=== PATIENT | female | born 1990 | race Caucasian/White ===

== ENCOUNTER 2020-12-14 13:30 | Inpatient (IN) | payer OTHER ==
[2020-12-14 14:17] VITALS: BMI 28.4
[2020-12-14] MEDS ORDERED: hydrALAZINE 20 MG/ML VIAL SLOW IVP PRN ×3 (14:27→23:47)
--- NOTE | 2020-12-14 14:32 | PDOC.LDHP ---
Labor and Delivery H&P Chief complaint: contractions HPI: 30 yo (h/o demise @ 16wks EGA) presents in labor. Contractions started last night around 11pm. She began leaking amniotic fluid with movement at 10:00am this morning. She states the contractions are uncomfortable, but she is not currently in any pain. She had Current gestational age (weeks): 39 (39.3) Due date: 12/18/20 Dating criteria: last menstrual period, first trimester ultrasound Grav: 2 OB History Details: H/o IUFD @ 16wks with prior . [facility] genetic testing negative. Female gender. APLS workup negative. Current complications: none Abnormal US findings: No Past Medical History: None Current medications: pre-minerva vitamins Previous surgical history: none Allergies/Adverse Reactions: Allergies Allergy/AdvReac Type Severity Reaction Status Date / Time No Known Allergies Allergy Unverified 12/14/20 14:07 Social history: none - Physical Exam Vital signs reviewed and normal: yes General: NAD, resting, breathing through contractions Heart: RRR Lungs: nonlabored breathing Abdomen: gravid Extremeties: no edema FHT: category 1 [place] contractions every: irreg - Vaginal Exam cm dilated: 4 (grossly ruptured membranes) Effacement: 90% Station: -1 - OB Labs Blood type: A RH: positive Antibody Screen: negative HIV: negative RPR: negative HEPSAg: negative 1 hour GCT: negative GBS: negative Rubella: immune - Assessment L&D Assessment: term rupture in membranes - Plan Plan: admit to L&D -: GBS negative. Admit to L&D for labor. Augment as needed.
[2020-12-14] MEDS ORDERED: Promethazine HCl 25 MG/ML VIAL IM PRN ×3 (14:38→23:47)
[2020-12-14] MEDS ORDERED: Methylergonovine 0.2 MG/ML VIAL IM PRN (14:38)
[2020-12-14] MEDS ORDERED: Lidocaine 1% (PF) 30 ML VIAL SC PRN (14:38)
[2020-12-14] MEDS ORDERED: Ibuprofen 800 MG TAB PO PRN (14:38)
[2020-12-14] MEDS ORDERED: Ondansetron PF 4 MG/2 ML Vial IVP PRN ×3 (14:38→23:47)
[2020-12-14] MEDS ORDERED: Carboprost 250 MCG/ML AMP IM PRN (14:38)
[2020-12-14] MEDS ORDERED: Misoprostol 200 MCG TAB PR PRN (14:38)
[2020-12-14] MEDS ORDERED: Diphenoxylate HCl/Atropine Tablet PO PRN (14:38)
[2020-12-14] MEDS ORDERED: NS w/ Oxytocin 30 units 500 ML IVPB PRN (14:47)
[2020-12-14] MEDS ORDERED: NS w/ Oxytocin 30 units 500 ML IVPB SCH ×2 (15:00→23:45)
[2020-12-14 15:55] LABS: Hemoglobin 11.3 g/dL (12.0-16.0); Mean Corpuscular HGB CONC 32.7 g/dL (32.0-36.0); Mean Corpuscular Hemoglobin 25.5 pg (27.0-31.0); Platelet Count 280 thou/uL (130-400); Red Blood Cell (RBC) Count 4.43 mill/uL (4.20-5.40); White Blood Cell (WBC) Count 14.4 thou/uL (4.8-10.8)
[2020-12-14 16:34] LABS: Syphilis Antibody Nonreactive (Nonreactive); Syphilis Antibody Index 0.02 S/CO (<1.00 Non-Reactive)
[2020-12-14 16:35] LABS: HBSAg Index 0.18 S/CO (0-0.99); Hep B Surf Ag Non-Reactive S/CO (NonReactive)
[2020-12-14] MEDS ORDERED: Fentanyl 4 mcg/Bup 0.1% Cadd 100 ML ONE (16:53)
[2020-12-14] MEDS ORDERED: Lactated Ringer's 500 ML IV PRN (17:38)
[2020-12-14] MEDS ORDERED: diphenhydrAMINE 50 MG/ML VIAL IVP PRN (17:38)
[2020-12-14] MEDS ORDERED: Acetaminophen 325 MG TAB PO PRN (17:38)
[2020-12-14] MEDS ORDERED: Naloxone HCl 0.4 mg/ml Vial IVP PRN ×2 (17:38)
[2020-12-14] MEDS ORDERED: ePHEDrine 50 MG/ML VIAL SLOW IVP PRN (17:38)
[2020-12-14] MEDS ORDERED: Communication Order-Pharmacy FS SCH (17:45)
[2020-12-14] MEDS ORDERED: Fentanyl 4 mcg/Bupivacaine 0.1% Cassette 100 ML EPIDURAL SCH (17:45)
[2020-12-14] MEDS: Lactated Ringer's 1,000 ML IV SCH (18:15)
[2020-12-14] MEDS ORDERED: Lidocaine 1% (PF) 30 ML VIAL ONE (19:53)
--- NOTE | 2020-12-14 21:45 | PDOC.OPDEL ---
OB Operative/Delivery Note Delivery Dr/Surgeon: Darvin Pre-Delivery Diagnosis: ruptured membrane Procedure/Post Delivery Dx: spontaneous vaginal delivery Weeks gestation: 39 Anesthesia: epidural - Findings A Sex: female - 1 min: 8 - 5 min: 9 - Additional Findings/Plan Placenta delivered: spontaneous Repaired Obstetrical Laceration: 1st degree Estimated blood loss: 75cc Compilations/Other Findings: NC x1 reduced Post delivery plan: routine recovery
[2020-12-14] MEDS ORDERED: Preparation H Ointment 28 GM TUBE PR PRN (23:47)
[2020-12-14] MEDS ORDERED: Milk Of Magnesia 30 ML UDCUP PO PRN (23:47)
[2020-12-14] MEDS ORDERED: HYDROcodone/Acetaminophen 5/325 mg Tablet PO PRN ×2 (23:47)
[2020-12-14] MEDS ORDERED: Bisacodyl 10 MG SUPP PR PRN (23:47)
[2020-12-14] MEDS ORDERED: Benzocaine-Menthol 82.5 ML CAN TOP PRN (23:47)
[2020-12-14] MEDS ORDERED: Lanolin Ointment 7 GM TUBE TOP PRN (23:47)
[2020-12-14] MEDS ORDERED: diphenhydrAMINE 25 MG CAP PO PRN (23:47)
[2020-12-15] MEDS: Lactated Ringer's 1,000 ML IV SCH
[2020-12-15] MEDS: Ibuprofen 800 MG TAB PO SCH ×3 (05:28→22:43)
[2020-12-15] MEDS: Ferrous Sulfate 325 MG TAB PO SCH (06:54)
[2020-12-15 06:56] LABS: SARS-CoV-2 PCR by NAA Not Detected (NotDetected)
[2020-12-15] MEDS: Prenatal Vitamin 1 TAB PO SCH (08:09)
[2020-12-15] MEDS: Docusate Calcium (SURFAK) 240 MG CAP PO SCH ×2 (08:09→22:44)
[2020-12-15] MEDS ORDERED: Adacel (T-DAP) 0.5 ML SYRINGE IM ONE (09:00)
--- NOTE | 2020-12-15 19:15 | PDOC.PP ---
Post Progress Note Post Day #: 1 PO intake tolerated: yes Flatus: yes Ambulation: yes Vital Signs (12 hours) Temp Pulse Resp BP Pulse Ox 12/15/20 16:20 98.3 F 83 18 129/69 98 12/15/20 12:36 98.3 F 77 18 121/68 97 12/15/20 08:13 98 F 73 20 118/56 L 97 Weight Weight 198 lb - Physical Examination General: NAD Respiratory: non-labored breathing Skin: no rash Neurological: no gross focal deficits Psychiatric: normal affect Result Diagrams: 12/14/20 15:40 Additional Labs: Post Labs Hep Bs Antigen Non-Reactive S/CO (NonReactive) 12/14/20 15:40 Blood Type A POSITIVE 12/14/20 17:01 - Assessment/Plan PPD1 s/p TVSD VSSAF Doing well, lochia < menses s/p LC Rh pos RImm Cont PP care.
[2020-12-16] MEDS: Ibuprofen 800 MG TAB PO SCH (06:55)
--- NOTE | 2020-12-16 07:00 | PDOC.PP ---
Post Progress Note Post Day #: 2 PO intake tolerated: yes Flatus: yes Ambulation: yes Vital Signs (12 hours) Temp Pulse Resp BP Pulse Ox 12/15/20 19:45 96.4 F L 80 20 127/78 97 Weight Weight 198 lb - Physical Examination General: NAD Respiratory: non-labored breathing Abdominal: no distention, appropriately TTP Extremities: negative homans (B) Skin: no rash Neurological: no gross focal deficits Psychiatric: normal affect Result Diagrams: 12/14/20 15:40 Additional Labs: Post Labs Hep Bs Antigen Non-Reactive S/CO (NonReactive) 12/14/20 15:40 Blood Type A POSITIVE 12/14/20 17:01 - Assessment/Plan PPD2 s/p TSVD VSSAF No issues bleeding appropriately rh pos rimm DC home FU 6w
[2020-12-16] MEDS: Ferrous Sulfate 325 MG TAB PO SCH (07:14)
[2020-12-16] MEDS: Docusate Calcium (SURFAK) 240 MG CAP PO SCH (08:24)
[2020-12-16] MEDS: Prenatal Vitamin 1 TAB PO SCH (08:24)
[2020-12-16 11:56] VITALS: BP 131/83; TEMP 97.8
== END 2020-12-16 15:00 | disposition home or self-care (01) | DRG 807 ==
LOC: L&D/OP 13:30 → L&D 14:38 → 3SE 23:46
PROVIDERS: ADMIT Student in an Organized Health Care Education/Training Program; ATTEND Student in an Organized Health Care Education/Training Program
PROC: 10E0XZZ Delivery of Products of Conception, External Approach (ICD-10-PCS; principal; 2020-12-14)
PROC: 0HQ9XZZ Repair Perineum Skin, External Approach (ICD-10-PCS; 2020-12-14)
DX: O69.1XX0 Labor and delivery complicated by cord around neck, with compression, not applicable or unspecified (principal); Z37.0 Single live birth; Z3A.39 39 weeks gestation of pregnancy; O70.0 First degree perineal laceration during delivery; Z20.822 Contact with and (suspected) exposure to COVID-19
CPT/HCPCS: 36415; 51702; 85027; 86780; 86850; 86900; 86901; 87340; 87635; 99285; J2590; U0003; U0005